=== PATIENT | female | born 1975 | race Caucasian/White ===

== ENCOUNTER → 2021-12-03 | Outpatient (CLI) | payer OTHER ==
--- NOTE | 2021-12-03 11:43 | MM ---
Reason for exam: screening (asymptomatic). Last mammogram was performed 4 years and 1 month ago. History: Family history of breast cancer in mother at age 50. Took hormonal contraceptives beginning at age 14. Physical Findings: A clinical breast exam by your physician is recommended on an annual basis and results should be correlated with mammographic findings. MG Screening Mammo w CAD Bilateral CC and MLO view(s) were taken. Prior study comparison: November 13, 2017, left breast MG work up mamm w CAD LT. November 13, 2017, bilateral MG screening mammo w CAD. The breast tissue is heterogeneously dense. This may lower the sensitivity of mammography. There is chronic nodularity in the right breast upper outer quadrant, stable. There is no dominant lesion. Asymmetric breast tissue in the left breast, stable. ASSESSMENT: Benign, BI-RAD 2 RECOMMENDATION: Routine screening mammogram of both breasts in 1 year.
== END | disposition home or self-care (01) ==
LOC: RADMAMWWP 06:56
PROVIDERS: ATTEND Obstetrics & Gynecology
DX: Z12.31 Encounter for screening mammogram for malignant neoplasm of breast (principal); Z80.3 Family history of malignant neoplasm of breast
CPT/HCPCS: 77067